=== PATIENT | male | born 2000 | race Hispanic/Latino ===

== ENCOUNTER 2024-03-12 13:02 | Emergency (ER) | payer SELFPAY ==
[2024-03-12 13:10] VITALS: BP 127/80; PULSE 79; RESP 16; TEMP 37.1; O2SAT 100
[2024-03-12 13:15] VITALS: BP 127/80; PULSE 79; RESP 16; TEMP 37.1; O2SAT 100
--- NOTE | 2024-03-12 13:21 | ED.EAR ---
HPI - Ear Problem General Chief complaint: Ear Stated complaint: left ear/jaw pain Time Seen by Provider: 03/12/24 13:15 Source: patient and RN notes reviewed Mode of arrival: ambulatory Limitations: no limitations History of Present Illness HPI Narrative: Patient presents today with a one-week history of left ear pain. Hearing is normal. Denies drainage. No additional symptoms noted. Currently rates his pain 9/10 and has been using warm compresses and ibuprofen without much relief. States he had been doing some swimming prior to onset of symptoms. Related Data Allergies Allergy/AdvReac Type Severity Reaction Status Date / Time No Known Allergies Allergy Verified 03/12/24 13:15 Review of Systems Review of Systems: CONSTITUTIONAL: Denies body aches, fever, chills, or sweats. EYES: Denies visual changes, redness, or discharge. ENT: Denies rhinorrhea, congestion, sore throat. + left ear pain CARDIOVASCULAR: Denies chest pain, palpitations, or edema. RESPIRATORY: Denies cough or dyspnea. GASTROINTESTINAL: Denies abdominal pain, nausea, vomiting, or diarrhea. GENITOURINARY: Denies dysuria or hematuria. SKIN: Denies rash, itching, or wounds. MUSCULOSKELETAL: Denies back pain, joint pain, or myalgia. NEUROLOGIC: Denies headache, numbness, tingling, or weakness. PSYCH: Denies depression or anxiety. PMFSH Comments At time of signature, I have reviewed and agree with nursing past medical, surgical, social and family history unless otherwise noted. Please see nursing chart for further information. There is no relevant family history pertinent to the presenting complaint Exam Narrative: GENERAL: Well-appearing, well-nourished, and in no acute distress. HEAD: Normocephalic, atraumatic. EYES: EOMI. No redness or drainage. Conjunctivae normal. ENT: Mucous membranes pink and moist. Nares clear. No rhinorrhea. Right ear normal. Left ear: Movement and tragal tenderness noted. TM normal. Ear canal is slightly erythematous without edema. No mastoid tenderness. NECK: Normal AROM. Supple. No lymphadenopathy. CHEST: No respiratory distress. EXTREMITIES: Normal range of motion. No edema. SKIN: Warm, dry, no rash. Capillary refill normal. Normal skin turgor. NEURO: No focal deficits. Alert and oriented x3. Gait steady. PSYCH: Normal affect. No signs of depression or anxiety. Course Course Level of Care: Express Care Visit Vital Signs Vital signs: Vital Signs Temperature 98.8 F 03/12/24 13:10 Pulse Rate 79 03/12/24 13:10 Respiratory Rate 16 03/12/24 13:10 Blood Pressure 127/80 03/12/24 13:10 Pulse Oximetry 100 03/12/24 13:10 Oxygen Delivery Room Air 03/12/24 13:10 Temperature 98.8 F 03/12/24 13:15 Pulse Rate 79 03/12/24 13:15 Respiratory Rate 16 03/12/24 13:15 Blood Pressure 127/80 03/12/24 13:15 Pulse Oximetry 100 03/12/24 13:15 Oxygen Delivery Room Air 03/12/24 13:15 Reviewed Medical Decision Making MDM Narrative Medical decision making narrative: Patient has a slight otitis externa. Will treat with Cortisporin drops. Anticipatory guidance given. Differential Diagnosis Differential Diagnosis: Otitis media, otitis externa, ruptured TM, serous otitis, cerumen impaction Vital Signs Vital Signs: Vital Signs Temperature 98.8 F 03/12/24 13:10 Pulse Rate 79 03/12/24 13:10 Respiratory Rate 16 03/12/24 13:10 Blood Pressure 127/80 03/12/24 13:10 Pulse Oximetry 100 03/12/24 13:10 Oxygen Delivery Room Air 03/12/24 13:10 Temperature 98.8 F 03/12/24 13:15 Pulse Rate 79 03/12/24 13:15 Respiratory Rate 16 03/12/24 13:15 Blood Pressure 127/80 03/12/24 13:15 Pulse Oximetry 100 03/12/24 13:15 Oxygen Delivery Room Air 03/12/24 13:15 Critical Care Time Critical Care Time Critical Care Time: No Discharge Plan Discharge Clinical Impression: Left otitis externa Qualifiers: Otitis externa type: unspecified t
== END 2024-03-12 13:33 | disposition home or self-care (01) ==
PROVIDERS: Emergency Provider Nurse Practitioner
DX: H60.502 Unspecified acute noninfective otitis externa, left ear (principal)
CPT/HCPCS: 99203; G0463